=== PATIENT | female | born 1940 | race Caucasian/White ===

== ENCOUNTER 2016-05-28 08:58 | Outpatient (CLI) | payer MEDICARE, OTHER ==
[2016-05-28 09:44] LABS: eGFR (African) > 60; eGFR (Non-African) > 60
== END 2016-05-28 09:00 ==
LOC: LAB 08:58
PROVIDERS: ATTEND Family Medicine
DX: E78.2 Mixed hyperlipidemia (principal)
CPT/HCPCS: 36415; 80053; 80061

== ENCOUNTER 2017-06-02 08:46 | Outpatient (CLI) | payer MEDICARE, OTHER ==
[2017-06-02 09:42] LABS: eGFR (African) > 60; eGFR (Non-African) > 60
== END 2017-06-02 08:47 ==
LOC: LAB 08:46
PROVIDERS: ATTEND Family Medicine
DX: E78.2 Mixed hyperlipidemia (principal)
CPT/HCPCS: 36415; 80053; 80061

== ENCOUNTER 2018-06-03 08:44 | Outpatient (CLI) | payer OTHER ==
[2018-06-03 09:29] LABS: eGFR (Non-African) > 60
== END 2018-06-03 08:46 ==
LOC: LAB 08:44
PROVIDERS: ATTEND Family Medicine
DX: E78.2 Mixed hyperlipidemia (principal)
CPT/HCPCS: 36415; 80053; 80061